=== PATIENT | male | born 1970 | race Caucasian/White ===

== ENCOUNTER 2019-04-09 12:20 | Emergency (ER) | payer OTHER ==
[~2019-04-09] VITALS: Ht 162.6 cm; Wt 85.0 kg
[2019-04-09] MEDS ORDERED: ONDANSETRON 4 MG INJ IV STA ×2 (12:33→13:33)
[2019-04-09] MEDS ORDERED: morphine 4 MG/ML VIAL IV STA (12:33)
[2019-04-09] MEDS ORDERED: SOD CHLORIDE 0.9% 1,000 ML IV STA (12:33)
[2019-04-09 12:42] VITALS: Ht 162.6 cm; Wt 85.0 kg
[2019-04-09] MEDS ORDERED: ACET-141 PO (13:09)
[2019-04-09] MEDS ORDERED: SOD CHLORIDE 0.9% 100 ML ONE (13:15)
[2019-04-09] MEDS ORDERED: IOHEXOL 350MG/ML 50 ML BTL ONE (13:15)
[2019-04-09] MEDS ORDERED: IOHEXOL 100 ML ONE (13:15)
[2019-04-09] MEDS ORDERED: ASPIRIN 325 MG TAB PO ONE (15:00)
--- NOTE | 2019-04-09 15:07 | ERD ---
ER Documentation Chief Complaint Chief Complaint adrian from [facility]; sudden SOB, mid epigastric pain, L leg pain; (-) distress HPI Patient is a 48-year-old male with hypertension who presents with abdominal pain. The patient was brought in by ambulance. The patient had sudden onset of chest pain and midepigastric pain which started about 1 hour ago. He started yesterday with left leg pain. During this episode today he had sweating and shortness of breath. He had to go outside to get air. He works as a cook. Upon review of old medical records this is the patient's first visit to the emergency department. His primary doctor is a [facility]. ROS All systems reviewed and are negative except as per history of present illness. Medications Home Meds Reported Medications Acetaminophen* (Acetaminophen*) 500 MG Extra Strength Tablet, 1000 MG PO Q6H PRN for PAIN AND OR ELEVATED TEMP, TAB 04/09/19 Allergies Allergies: Coded Allergies: No Known Allergy (Unverified , 04/09/19) PMhx/Soc Medical and Surgical Hx: pt denies Medical Hx, pt denies Surgical Hx Hx Alcohol Use: No Hx Substance Use: No Hx Tobacco Use: No Smoking Status: Never smoker FmHx Family History: coronary disease Physical Exam Vitals Vital Signs Date Temp Pulse Resp B/P (MAP) Pulse Ox O2 O2 Flow FiO2 Time Delivery Rate 04/09/19 98.4 105 20 169/84 99 12:42 (112) Physical Exam Const: Mild distress Head: Atraumatic Eyes: Normal Conjunctiva ENT: Normal External Ears, Nose and Mouth. Neck: Full range of motion. No meningismus. Resp: Clear to auscultation bilaterally Cardio: Regular rate and rhythm, no murmurs Abd: Soft, tenderness to palpation in the epigastric region without rebound or guarding Skin: Mild diaphoresis Back: No midline or flank tenderness Ext: No cyanosis, or edema Neur: Awake and alert Psych: Normal Mood and Affect Result Diagram: 04/09/19 1235 04/09/19 1235 Results 24 hrs Laboratory Tests Test 04/09/19 12:35 White Blood Count 7.5 10^3/ul Red Blood Count 5.24 10^6/ul Hemoglobin 15.9 g/dl Hematocrit 45.7 % Mean Corpuscular Volume 87.2 fl Mean Corpuscular Hemoglobin 30.3 pg Mean Corpuscular Hemoglobin Concent 34.8 g/dl Red Cell Distribution Width 12.9 % Platelet Count 226 10^3/UL Mean Platelet Volume 9.8 fl Immature Granulocytes % 0.100 % Neutrophils % 62.8 % Lymphocytes % 22.4 % Monocytes % 11.3 % Eosinophils % 2.3 % Basophils % 1.1 % Nucleated Red Blood Cells % 0.0 /100WBC Immature Granulocytes # 0.010 10^3/ul Neutrophils # 4.7 10^3/ul Lymphocytes # 1.7 10^3/ul Monocytes # 0.9 10^3/ul Eosinophils # 0.2 10^3/ul Basophils # 0.1 10^3/ul Nucleated Red Blood Cells # 0.0 10^3/ul Prothrombin Time 12.1 Sec Prothrombin Time Ratio 0.9 INR International Normalized Ratio 0.89 Activated Partial Thromboplast Time 27.6 Sec Sodium Level 136 mmol/L Potassium Level 3.4 mmol/L Chloride Level 101 mmol/L Carbon Dioxide Level 23 mmol/L Anion Gap 12 Blood Urea Nitrogen 14 mg/dl Creatinine 0.79 mg/dl Est Glomerular Filtrat Rate mL/min > 60 mL/min Glucose Level 183 mg/dl Calcium Level 8.9 mg/dl Total Bilirubin 0.5 mg/dl Direct Bilirubin 0.00 mg/dl Indirect Bilirubin 0.5 mg/dl Aspartate Amino Transf (AST/SGOT) 42 IU/L Alanine Aminotransferase (ALT/SGPT) 48 IU/L Alkaline Phosphatase 104 IU/L Troponin I < 0.012 ng/ml Total Protein 7.8 g/dl Albumin 4.5 g/dl Globulin 3.30 g/dl Albumin/Globulin Ratio 1.36 Lipase 36 U/L Current Medications Medications Dose Sig/Morris Start Time Status Last (Trade) Ordered Route PRN Stop Time Admin Dose Reason Admin Sodium 1,000 ml @ Q1H STAT 04/09/19 DC 04/09/19 Chloride 1,000 mls/hr IV 12:33 04/09/19 12:38 13:32 Morphine 4 mg ONCE STAT 04/09/19 DC 04/09/19 Sulfate IV 12:33 04/09/19 12:38 (morphine) 12:35 Ondansetron 4 mg ONCE STAT 04/09/19 DC 04/09/19 HCl (Zofran IV 12:33 04/09/19 12:38 Inj) 12:35 Iohexol 100 ml @ ud STK-MED 04/09/19 DC ONCE .ROUTE 13:15 04/09/19 13:16 Iohexol 50 ml STK-MED 04/09/19 DC (Omnipaque ONCE .ROUTE 13:15 04/09/19 350mg/ ml) 13:16 Sodium 100 ml @ ud STK-MED 04/09/19 DC Chloride ONCE .ROUTE 13:15 04/09/19 13:16 IV Flush 10 ml STK-MED 04/09/19 DC (NS 10 ml) ONCE .ROUTE 13:15 04/09/19 13:16 Ondansetron 4 mg ONCE STAT 04/09/19 DC 04/09/19 HCl (Zofran IV 13:33 04/09/19 13:38 Inj) 13:34 Aspirin 325 mg ONCE ONCE 04/09/19 04/09/19 (Aspirin) PO 15:00 04/09/19 14:52 15:01 Procedures/MDM EKG read by me: Rate/Rhythm: Sinus tachycardia Intervals: Normal Impression: Tachycardia with flipped T wave in lead III Chest x-ray read by radiology. CT scan of the chest, abdomen, and pelvis read by radiology showed no sign of pulmonary embolism or aortic dissection. Patient is a 48-year-old male with hypertension who presents with chest pain, abdominal pain, and near syncope. I was concerned for potential acute coronary syndrome or aortic dissection. Laboratory studies were done which were basically normal and CT scan of the chest, abdomen, and pelvis was negative for dissection or pulmonary embolism. At this point I doubt pneumonia, pulmonary embolism, pneumothorax, or aortic dissection. The patient will need admission for observation and acute coronary syndrome rule out. The patient will be transferred to [facility] for insurance reasons. I spoke with the accepting physician at [facility] who gave an authorization number of [id number]. Departure Diagnosis: Primary Impression: Near syncope Additional Impressions: Shortness of breath Abdominal pain Abdominal location: epigastric Qualified Codes: R10.13 - Epigastric pain Chest pain Chest pain type: unspecified Qualified Codes: R07.9 - Chest pain, unspecified Condition: RAYMON Church MD Apr 09, 2019 15:07
[2019-04-09 15:31] VITALS: BP 144/97; PULSE 90; RESP 18
== END 2019-04-09 16:42 | disposition short-term general hospital (02) ==
LOC: E/R 12:20
DX: R10.13 Epigastric pain (principal); R55 Syncope and collapse; R06.02 Shortness of breath; R07.9 Chest pain, unspecified
CPT/HCPCS: 36415; 71045; 71275; 75635; 80053; 83690; 84484; 85025; 85610; 85730; 93005; 96374; 96375; 96376; 99285; J2270; J2405; J7030; Q9967